=== PATIENT | female | born 1995 | race Caucasian/White ===

== ENCOUNTER 2017-09-24 03:18 | Emergency (ER) | payer SELFPAY ==
[~2017-09-24] VITALS: Ht 180.3 cm; Wt 69.4 kg
[2017-09-24 03:23] VITALS: TEMP 36.6; Ht 180.3 cm; Wt 69.4 kg
[2017-09-24] MEDS ORDERED: CITA10TA8 PO (03:54)
[2017-09-24] MEDS ORDERED: BCPILLS PO (03:54)
--- NOTE | 2017-09-24 03:55 | EMERGENCY ROOM VISIT NOTE ---
History Report prepared by Baldevibbryson: Raul Sequeira Under the Supervision of: Dr. Roxana Loco M.D. First contact with patient: 03:38 Chief Complaint: HEAD INJURY (MINOR) Stated Complaint: HIT HEAD,BLEEDING ON SCALP,HX CONCUSSION History of Present Illness The patient is a 21 year old female who presents to the Emergency Room with complaints of an episodic head injury due to a fall at 0115 this morning. The patient states that she recovered from a concussion she suffered two weeks ago from a fall due to intoxication. She notes that she fell backwards out of a chair onto a kitchen floor. She notes that she was intoxicated due to alcohol at that time. Per friends, the patient was walking near the street when she lost her balance and fell in the street. They note that she did not LOC, though she has a head injury. Per friends, the patient did throw up a lot after the head injury. She is not a [employer]. She reports drinking shots of liquor this evening. She denies any abdominal pain or leg pain. She denies any chance of . She notes her tetanus shot is up-to-date. She denies any underlying medical problems. She takes control and Celexa. Source of History: patient, friend Onset: 0115 this evening Position: head Quality: other (injury) Timing: other (episodic ) Associated Symptoms: + vomiting, No LOC, No abdominal pain Note: She denies any leg pain. Review of Systems See HPI for pertinent positives & negatives. A total of 10 systems reviewed and were otherwise negative. Past Medical & Surgical Medical Problems: (1) Depression Family History No pertinent family history Social History Smoking Status: Never Smoker Alcohol Use: heavy Housing Status: lives with roommate Occupation Status: student Current/Historical Medications Scheduled Control Pills ( Control Pills), 1 TAB PO DAILY Citalopram Hydrobromide (Celexa), 1 TAB PO DAILY Allergies Coded Allergies: No Known Allergies (Unverified , 09/24/17) Physical Exam Vital Signs Date Time Temp Pulse Resp B/P (MAP) Pulse Ox O2 Delivery O2 Flow Rate FiO2 09/24/17 05:48 76 16 96 Room Air 09/24/17 05:40 83 09/24/17 05:38 103/74 09/24/17 04:12 85 18 112/74 97 Room Air 09/24/17 03:23 36.6 112 18 103/70 96 Room Air Physical Exam Vital signs reviewed. General: Well-appearing 21-year-old female, in no significant distress. Appears intoxicated. HEENT: No scleral icterus, PERRLA, neck supple. Small hematoma to right parietal scalp with macerated tissue. Cardiovascular: Regular rate and rhythm, no extra sounds. Pulmonary: Clear to auscultation bilaterally, normal work of breathing. Abdomen: Soft, nontender, nondistended, positive bowel sounds. Musculoskeletal: Atraumatic, no significant deformity. Cervical, thoracic and lumbar spine are palpated, nontender, no step-off or deformity appreciated. Neurologic: Patient awake alert and oriented x 3, full strength in all 4 extremities. Skin: Warm, dry, no rash. No significant abrasions/laceration. Medical Decision & Procedures ER Provider Diagnostic Interpretation: Radiology results as stated below per my review and radiologist interpretation: CT HEAD: Scalp injury. No acute intracranial findings or skull fracture. Radiologist: Yoni Garcia MD Study ready at 04:14 and initial results transmitted at 04:29 Laboratory Results Test 09/24/17 03:58 Ethyl Alcohol mg/dL 299.0 mg/dl (0-3) Laboratory results per my review. ED Course 0340: Past medical records reviewed. The patient was evaluated in room B7. A complete history and physical examination was performed. 0531: I reassessed the patient at this time. The patient is sleeping, difficult to wake up, withdrawing to painful stimuli. Friends will leave a phone number for later contact. Medical Decision Differential diagnosis: Etiologies such as fracture, dislocation, intra-abdominal, pneumothorax, intrathoracic , intracranial, neurologic, as well as other traumatic pathologies were entertained. This patient was evaluated and appeared to be in no significant distress. The patient is clinically intoxicated. There is a small hematoma to the right parietal scalp with macerated tissue overlying. There is mild oozing. CT scan of the head was performed and is negative for acute intracranial abnormality. Patient's blood alcohol level is 299 at 4 AM. Patient was reevaluated and unable to wake up at approximately 5:30 AM. She was withdrawing to painful stimuli, but remains non-verbal. Given the excessive alcohol intoxication and inability to reevaluate from a head injury standpoint, the patient will remain in the emergency department until she reaches a more sober state. Her friends have provided contact information. They were advised that the patient's excessive alcohol intake and recurrent head injuries are problematic for her healing. Case has been signed out to Dr. Cherry at the change of shift, pending reevaluation. Medication Reconcilliation Current Medication List: was personally reviewed by me Blood Pressure Screening Patient's blood pressure: Normal blood pressure Impression Primary Impression: Alcohol intoxication Additional Impression: Closed head injury Scribe Attestation The scribe's documentation has been prepared under my direction and personally reviewed by me in its entirety. I confirm that the note above accurately reflects all work, treatment, procedures, and medical decision making performed by me. Departure Information Referrals No Doctor, Assigned (PCP) Patient Instructions My [facility] Problem Qualifiers
--- NOTE | 2017-09-24 08:35 | EMERGENCY ROOM VISIT NOTE ---
ED Visit Note First contact with patient: 08:32 The patient was taken in signout from Dr. Loco at the change of shift. Please see that note for details. The patient was pending clearance of alcohol intoxication and reevaluation for her closed head injury. Patient's alcohol intoxication cleared. She had a mild headache but was doing well. She had no other complaints. No neck pain. The patient did have a small wound and it was continuing to ooze. It was felt that this should be closed. She underwent closure of the small scalp wound. This was successful. See below. Alcohol and concussion instructions were discussed at length with the patient. She will follow-up closely as an outpatient. She was instructed not to drive today. I gave my usual and customary discussion regarding this issue. Return instructions were outlined and she was discharged in stable condition. Location: Scalp Total length: 6 mm Complexity: Simple Verbal consent was obtained after the risks and benefits were explained, including but not limited to bleeding, scarring, infection, pain, and bone/ nerve damage. At this time, the risks of the procedure are less than the risks of NOT performing the procedure. A time out was taken and the correct patient and site identified. The target area was anesthetized with LET gel. Copious irrigation was performed using saline. The skin was re-prepped with betadine, the hair cleared from the wound, and a sterile field set. The wound was explored for foreign bodies and none found. Debridement was not performed. The wound edges were approximated using 2 surgical damari in the standard fashion. Hemostasis and excellent approximation was achieved. Antibacterial ointment and a sterile dressing applied. Detailed wound care instructions and signs and symptoms of infection reviewed with the patient. No complications and the patient tolerated the procedure well.
--- NOTE | 2017-09-24 08:38 | DIAGNOSTIC IMAGING REPORT ---
CT HEAD WITHOUT CONTRAST (CT) CLINICAL HISTORY: Head pain.] Injury. Concussion. COMPARISON STUDY: No previous studies for comparison. TECHNIQUE: Axial CT of the brain is performed from the vertex to the skull base. IV contrast was not administered for this examination. A dose lowering technique was utilized adhering to the principles of ALARA. CT DOSE: 537.48 mGy.cm FINDINGS: No intra or extra-axial mass lesions are visualized. There is no CT evidence of acute cortical infarction. There is no evidence of midline shift. There is no acute hemorrhage. No calvarial fractures are visualized. There is a right parieto-occipital scalp hematoma. There is no evidence of pathologic ventricular dilatation. There is no evidence of acute sinusitis IMPRESSION: Right-sided scalp hematoma. No acute intracranial findings. Electronically signed by: Santiago Matthews M.D. 09/24/2017 8:37 AM Dictated Date/Time: 09/24/2017 8:36 AM
[2017-09-24] MEDS ORDERED: LIDOCAINE/EPINEPH/TETRACAINE 1 EA SYR EXT STA (08:52)
[2017-09-24 12:01] VITALS: BP 97/70
[2017-09-24 12:18] VITALS: PULSE 82; O2SAT 96
== END 2017-09-24 12:30 | disposition home or self-care (01) ==
LOC: C.EDB 03:19
DX: S09.90XA Unspecified injury of head, initial encounter (principal); F10.920 Alcohol use, unspecified with intoxication, uncomplicated; W19.XXXA Unspecified fall, initial encounter; Y92.410 Unspecified street and highway as the place of occurrence of the external cause; F32.9 Major depressive disorder, single episode, unspecified; Z79.3 Long term (current) use of hormonal contraceptives; Z79.899 Other long term (current) drug therapy